=== PATIENT | male | born 1985 | race Caucasian/White ===

== ENCOUNTER 2018-05-13 14:42 | Inpatient (IN) | payer MEDICAID ==
[~2018-05-13] VITALS: Ht 165.1 cm; Wt 104.3 kg
--- NOTE | 2018-05-13 14:42 | NUR ---
PATIENT TO BED 4 BY EMS AT THIS TIME.
--- NOTE | 2018-05-13 14:45 | NUR ---
33Y/M BIB EMS FOR R LOWER LEG PAIN. LEG APPEARS RED, SWOLLEN, HOT TO TOUCH. + SWELLING, +1 PITTING. PT STATES " HE WENT TO [facility] YESTERDAY AND THEY DID NOTHING FOR HIM, HE WOKE UP THIS MORNING AND HIS LEFT LOWER LEG WAS SWOLLEN WITH 10/10 PAIN SCALE". PT IS AAOX4, VSS, BED DOWN, BEDRAIL UP X1, ER MD AWARE AND NOTIFIED OF PT STATUS. HX: TBI X 10 MONTHS RX: DENIES
--- NOTE | 2018-05-13 14:45 | NUR ---
Note undone in EDM - 05/13/18 at 1631 by MEDFL 33Y/M BIB EMS FOR LEFT LOWER LEG PAIN. LEG APPEARS RED, SWOLLEN, HOT TO TOUCH. + SWELLING, +1 PITTING. PT STATES " HE WENT TO [facility] YESTERDAY AND THEY DID NOTHING FOR HIM, HE WOKE UP THIS MORNING AND HIS LEFT LOWER LEG WAS SWOLLEN WITH 10/10 PAIN SCALE". PT IS AAOX4, VSS, BED DOWN, BEDRAIL UP X1, ER MD AWARE AND NOTIFIED OF PT STATUS. HX: TBI X 10 MONTHS RX: DENIES
[2018-05-13 14:47] VITALS: BP 121/73
--- NOTE | 2018-05-13 15:34 | NUR ---
Patient being evaluated by physician at bedside.
[2018-05-13] MEDS ORDERED: NACL 0.9% 500 ML IV SCH (15:40)
[2018-05-13] MEDS ORDERED: VANCOMYCIN 1,000 MG in DEXTROSE 5% 250 ML IV ONE (15:40)
[2018-05-13] MEDS ORDERED: NACL 0.9% 1,000 ML IV ONE (15:40)
[2018-05-13] MEDS ORDERED: PIPERACILLIN/TAZOBACTAM 3.375 GM in DEXT 5% MINI-BAG PLUS 50 ML IV ONE (15:40)
[2018-05-13] MEDS ORDERED: PIPERACILLIN/TAZOBACTAM 3.375 GM VIAL IV ONE ×2 (15:57→21:42)
[2018-05-13] MEDS ORDERED: VANCOMYCIN 1,000 MG VIAL ONE (15:57)
[2018-05-13 16:12] LABS: BASOPHILS # (AUTO) 0.1 K/uL (0.00-0.22); BASOPHILS % (AUTO) 0.7 % (0.0-2.0); EOSINOPHILS # (AUTO) 0.2 K/uL (0-0.4); EOSINOPHILS % (AUTO) 1.5 % (0.0-4.0); HEMATOCRIT 42.2 % (36-52); LYMPHOCYTES # (AUTO) 0.8 K/uL (2.0-11.5); LYMPHOCYTES % (AUTO) 5.4 % (20.5-51.1); MEAN CORPUSCULAR HEMOGLOBIN 29 pg (27-31); MEAN CORPUSCULAR HGB CONC 33 g/dL (33-37); MEAN CORPUSCULAR VOLUME 88.4 fL (80-94); MONOCYTES # (AUTO) 1.2 K/uL (0.8-1.0); MONOCYTES % (AUTO) 7.8 % (1.7-9.3); NEUTROPHILS # (AUTO) 12.5 K/uL (1.8-7.7); NEUTROPHILS % (AUTO) 84.6 % (42.2-75.2); PLATELET COUNT (AUTO) 307 K/uL (140-450); RED BLOOD CELL COUNT(AUTO) 4.78 MIL/uL (4.20-6.10); RED CELL DISTRIBUTION WIDTH 13.9 % (11.6-13.7); WHITE BLOOD COUNT (AUTO) 14.7 K/uL (4.8-10.8)
[2018-05-13 16:24] LABS: ANION GAP 7.6 (8-16); CARBON DIOXIDE 33.3 mmol/L (21-32); POTASSIUM 3.9 mmol/L (3.5-5.1)
[2018-05-13 16:29] LABS: ALBUMIN 3.2 g/dL (3.4-5.0); TOTAL BILIRUBIN 0.6 mg/dL (0.0-1.0)
[2018-05-13 16:59] LABS: APPEARANCE,URINE CLEAR (CLEAR); BILIRUBIN,URINE NEGATIVE (NEGATIVE); BLOOD, URINE NEGATIVE (NEGATIVE); COLOR,URINE YELLOW (YELLOW); UGLUCOSE NEGATIVE (NEGATIVE)
[2018-05-13 16:59] LABS: PROTHROMBIN TIME 9.5 secs (10.8-13.4)
[2018-05-13 17:00] LABS: LEUKOCYTE ESTERASE ,URINE NEGATIVE (NEGATIVE); NITRITE, URINE NEGATIVE (NEGATIVE)
[2018-05-13] MEDS ORDERED: DOCUSATE SODIUM 100 MG GELCAP PO PRN (18:30)
[2018-05-13 18:59] LABS: BARBITURATE, URINE NEG. ng/ml (NEG <=200); BENZODIAZEPINE, URINE NEG. ng/mL (NEG <=200); CANNABINOID, URINE POS. ng/mL (NEG <=50); COCAINE, URINE NEG. ng/mL (NEG <=300); OPIATE, URINE NEG. ng/mL (NEG <=2000); PHENCYCLIDINE SCREEN,URINE NEG. ng/mL (NEG <=25)
[2018-05-13 19:03] LABS: CHOL/HDL RATIO 1.7 (1-4.5); FREE T4 (FREE THYROXINE) 0.98 ng/dL (0.76-1.46); MAGNESIUM 2.1 mg/dL (1.8-2.4); PHOSPHORUS 3.3 mg/dL (2.5-4.9); THYROID STIMULATING HORMONE 0.81 uIU/mL (0.34-3.74)
--- NOTE | 2018-05-13 19:11 | NUR ---
REPORT GIVEN TO YARIEL CAMEJO
--- NOTE | 2018-05-13 19:30 | NUR ---
RECEIVED REPORT FROM AM NURSE. PT RESTING IN BED, RR EVEN AND UNLABORED.
--- NOTE | 2018-05-13 19:49 | NUR ---
TEMP 100.4 AND PAIN 9/10, ENDORSED TO MERCHANDISING EXECUTION ASSOCIATE
--- NOTE | 2018-05-13 19:50 | NUR ---
Patient will be admitted to care of MICHAEL FLOYD. Admited to TELE. Will go to room 125A. Belongings list completed. Report to YARIEL DUQUE.
[2018-05-13 19:52] VITALS: BP 119/80
--- NOTE | 2018-05-13 19:52 | NUR ---
RECEIVED REPORT FROM DAYSMDFT NURSE AT BEDSIDE FOR CONTINUITY OF CARE. IV NOTED LAC 18 SALINE LOCK. NO SOB NO S/S OF DISTRESS ON RA. PT HAS A FEVER MD AT BEDSIDE AND AWARE WILL MEDICATE. PT HAS ABSCESS ON RIGHT CALF REDNESS PICTURE IN CHART. SKIN NON INTACT IN RIGHT FOOT (INBETWEEN 2 AND 3RD TOE). BED LOWERED CALL LIGHT WITHIN REACH. WILL CONTINUE TO MONITOR. Addendum: 05/14/18 at 0009 by Ysabel Jiang RN RECEIVED REPORT FROM FELIZ CORREIA Addendum: 05/14/18 at 0009 by Ysabel Jiang RN RECEIVED REPORT FROM FELIZ BLACK
[2018-05-13] MEDS ORDERED: CLINDAMYCIN 600 MG/4 ML VIAL ONE (20:32)
[2018-05-13] MEDS: CLINDAMYCIN 600 MG in DEXTROSE 5% 50 ML IV SCH (20:53)
[2018-05-13] MEDS: ACETAMINOPHEN 325 MG TAB PO PRN (20:55)
[2018-05-13] MEDS: PIPERACILLIN/TAZOBACTAM 3.375 GM in DEXTROSE 5% 50 ML IV SCH (22:00)
[2018-05-13] MEDS: KETOROLAC 30 MG/ML VIAL IVP PRN (23:32)
--- NOTE | 2018-05-14 00:32 | NUR ---
ADMIN PAIN MED 1 HR AGO PAIN MED EFFECTIVE. WILL CONTINUE TO MONITOR.
[2018-05-14 04:00] VITALS: BP 137/86
[2018-05-14] MEDS ORDERED: PIPERACILLIN/TAZOBACTAM 3.375 GM VIAL IV ONE (04:00)
[2018-05-14] MEDS ORDERED: CLINDAMYCIN 600 MG/4 ML VIAL ONE (04:01)
[2018-05-14] MEDS: CLINDAMYCIN 600 MG in DEXTROSE 5% 50 ML IV SCH (04:04)
[2018-05-14] MEDS: PIPERACILLIN/TAZOBACTAM 3.375 GM in DEXTROSE 5% 50 ML IV SCH (04:50)
[2018-05-14 06:23] LABS: T4 (THYROXINE) 6.7 ug/dL (4.5-12.0)
[2018-05-14] MEDS: ONDANSETRON 4 MG/2 ML VIAL IM/IVP PRN ×2 (06:38→10:05)
--- NOTE | 2018-05-14 06:48 | NUR ---
CHANGED DRESSING SOILED. WILL CONTINUE TO MONITOR. ALSO PT WAS NAUSEA SO MEDICATED.
--- NOTE | 2018-05-14 07:37 | NUR ---
ENDORSED REPORT TO DAYSHIFT NURSE AT BEDSIDE FOR CONTINUITY OF CARE.
--- NOTE | 2018-05-14 07:37 | NUR ---
RECEIVED REPORT FROM DIGITAL SALES MANAGER RN. PT RESTING IN BED. A/O X4. VERBALIZES NEEDS. SKIN DRY AND WARM TO TOUCH. LUNGS CLEAR ON AUSCULTATION. PERIPHERAL LINE LEFT AC 18G . NS RUNNING AT 10 ML/HR. ABDOMEN SOFT ROUND AND NON-TENDER. DENIES DIZZINESS, N/V. CELLULITIS ON RIGHT LOWER LEG. OPEN WOUND ON RIGHT LOWER LEG COVERED WITH DRESSING, MINIMAL DRAINAGE NOTED ST THE SITE. ABLE TO MOVE RIGHT LEG AND FINGERS. PT C/O PAIN ON RIGHT LOWER LEG 10/10. KEPT PT ON COMFORTABLE POSITION. WILL MEDICATE ORDERED. KEPT HOB ELEVATED. BED IN LOW POSITION LOCKED. WILL CONTINUE TO MONITOR.
[2018-05-14] MEDS: ACETAMINOPHEN 325 MG TAB PO PRN (07:48)
[2018-05-14 08:00] VITALS: BP 136/79
[2018-05-14 08:13] LABS: BASOPHILS % (AUTO) 0.2 % (0.0-2.0); EOSINOPHILS # (AUTO) 0.1 K/uL (0-0.4); EOSINOPHILS % (AUTO) 0.9 % (0.0-4.0); HEMATOCRIT 38.6 % (36-52); HEMOGLOBIN 12.9 g/dL (12.0-18.0); LYMPHOCYTES # (AUTO) 0.7 K/uL (2.0-11.5); LYMPHOCYTES % (AUTO) 4.4 % (20.5-51.1); MEAN CORPUSCULAR HEMOGLOBIN 29 pg (27-31); MEAN CORPUSCULAR HGB CONC 33 g/dL (33-37); MEAN CORPUSCULAR VOLUME 86.9 fL (80-94); MONOCYTES # (AUTO) 1.3 K/uL (0.8-1.0); NEUTROPHILS % (AUTO) 86.5 % (42.2-75.2); PLATELET COUNT (AUTO) 286 K/uL (140-450); RED BLOOD CELL COUNT(AUTO) 4.45 MIL/uL (4.20-6.10); RED CELL DISTRIBUTION WIDTH 13.6 % (11.6-13.7); WHITE BLOOD COUNT (AUTO) 16.1 K/uL (4.8-10.8)
[2018-05-14 08:31] LABS: ANION GAP 11.1 (8-16); CARBON DIOXIDE 27.5 mmol/L (21-32); CREATININE 0.7 mg/dL (0.7-1.3); POTASSIUM 3.6 mmol/L (3.5-5.1)
--- NOTE | 2018-05-14 08:43 | NUR ---
PATIENT HAS BEEN SCREENED AND CATEGORIZED HIGH NUTRITION RISK. PATIENT WILL BE SEEN WITHIN 1-2 DAYS OF ADMISSION. 05/14/18-05/15/[address]
[2018-05-14 09:47] LABS: PHOSPHORUS 2.8 mg/dL (2.5-4.9)
[2018-05-14] MEDS: LACTOBACILLUS RHAMNOSUS GG 1 EACH CAP PO SCH (10:01)
[2018-05-14] MEDS: KETOROLAC 30 MG/ML VIAL IVP PRN ×2 (10:19→23:20)
[2018-05-14] MEDS ORDERED: DEXT 5% / NACL 0.45% 1,000 ML IV SCH (11:40)
[2018-05-14] MEDS: NACL 0.9% 1,000 ML IV SCH ×2 (11:45→21:53)
[2018-05-14 12:00] VITALS: BP 117/93
--- NOTE | 2018-05-14 12:00 | NUR ---
PT C/O PAIN ON RT. LOWER LEG. DR. FORREST MADE AWARE. WILL MEDICATE PT ORDERED.
[2018-05-14] MEDS: traMADol 50 MG TAB PO PRN (12:24)
[2018-05-14] MEDS: CLINDAMYCIN PHOS 600MG/D5W PM 50 ML IV SCH ×2 (12:26→20:58)
--- NOTE | 2018-05-14 12:39 | NUR ---
PT ASSISTED AMBULATION ON [address]. STEADY GAIT. BACK TO BED. RESTING IN BED. DENIES NAUSEA, DIZZINESS AT THIS TIME. CLINDAMYCIN RUNNING AT 100 ML/HR.
--- NOTE | 2018-05-14 13:28 | NUR ---
PT'S SISTER CALLED. UPDATED PT CONDITION.
[2018-05-14] MEDS: PIPER/TAZO 3.375GM/D5W PREMIX 50 ML IV SCH ×2 (13:59→20:58)
--- NOTE | 2018-05-14 14:06 | NUR ---
PT APPEARS TO RELAXED LYING IN BED. VERBALIZED DECREASE PAIN. NO ACUTE RESP DISTRESS NOTED.
--- NOTE | 2018-05-14 15:55 | NUR ---
ANSWERED CALL LIGHT. DRESSING SITED SOAKED WITH SEROSANGUINEOUS DRAINAGE. CLEANSED WOUND SITE COVERED WITH DRESSING. RE-APPLIED K-PAD. KEPT PT IN COMFORTABLE POSITION. DENIES PAIN.
[2018-05-14 16:00] VITALS: BP 128/78
--- NOTE | 2018-05-14 16:40 | NUR ---
DOWNGRADED TO MED-SURG.
--- NOTE | 2018-05-14 18:51 | NUR ---
PT ON STABLE CONDITION. NO CHANGE IN LOC.
--- NOTE | 2018-05-14 19:21 | NUR ---
REPORT GIVEN TO AVIATION MAINTENANCE INSTRUCTOR RN FOR CONTINUITY OF CARE. PT ON STABLE CONDITION.
--- NOTE | 2018-05-14 19:22 | NUR ---
RECEIVED PT INSTABLE CONDITION FROM MA NURSE. PT IS AAO X4. MED SURG PT. WITH NO C/O ANY PAIN OR DISCOMFORT AT THIS TIME. HAS IVF INFUSING WELL ON THE LT AC #18. WITH RT LEG CELLULITIS, DRESSING IN PLACED . K PAD ON. PT CAN AMBULATE. PLAN OF CARE DISCUSSED AND VERBALIZED UNDERSTANDING. BED ON LOW POSITION. CALL LIGHT PLACED WITHIN EASY REACH. WILL CONTINUE TO MONITOR.
--- NOTE | 2018-05-14 22:14 | NUR ---
JEISONRN DIRECTIONAL DRILL OPERATOR CALLED AND SAID SHE TRIED CALLING [place] IF PT IS GOING FOR SURGERY ,WANTS TO KNOW THE TIME BUT NO CALL BACK. I TRIED CALLING, LEFT CALL BACK NUMBER.
[2018-05-14 23:15] VITALS: BP 126/74
[2018-05-14] MEDS ORDERED: VANCOMYCIN PER PHARMACY MC PRN (23:15)
--- NOTE | 2018-05-14 23:25 | NUR ---
/ SD CAME AND EXAMINED PT. PT FOR SURGERY ELIZA DODD
[2018-05-15] MEDS ORDERED: VANCOMYCIN 2,000 MG in NACL 0.9% 500 ML IV SCH ×2
--- NOTE | 2018-05-15 00:05 | NUR ---
PT INSTRUCTED ABOUT NPO AFTER MN TONIGHT. VERBALIZED UNDERSTANDING.
--- NOTE | 2018-05-15 00:46 | NUR ---
DR. VAUGHN CAME AND SEEN PT WITH ORDERS. CLINDAMYCIN IV DISCONTINUED AND VANCOMYCIN 2,000 MG IVPB STARTED . WILL MONITOR FOR ANY REACTION.
[2018-05-15] MEDS ORDERED: VANCOMYCIN 1,000 MG VIAL ONE (00:50)
--- NOTE | 2018-05-15 02:30 | NUR ---
MADE ROUNDS. PT ASLEEP. NO S/S OF ANY DISCOMFORT/PAIN NOTED.
--- NOTE | 2018-05-15 04:00 | NUR ---
PT AWAKE. AWARE OT THE SURGERY TO BE DONE TODAY. CONSENT SIGNED.
[2018-05-15] MEDS: PIPER/TAZO 3.375GM/D5W PREMIX 50 ML IV SCH (04:39)
--- NOTE | 2018-05-15 05:30 | NUR ---
NO REACTION NOTED ON THE VANCOMYCIN IV GIVEN AT 0046.
--- NOTE | 2018-05-15 06:30 | NUR ---
REINSTRUCTED PT ABOUT NPO STATUS FOR SURGERY THIS AM.
[2018-05-15 07:06] LABS: BASOPHILS % (AUTO) 0.1 % (0.0-2.0); EOSINOPHILS # (AUTO) 0.3 K/uL (0-0.4); HEMATOCRIT 35.2 % (36-52); HEMOGLOBIN 12.2 g/dL (12.0-18.0); LYMPHOCYTES # (AUTO) 0.9 K/uL (2.0-11.5); LYMPHOCYTES % (AUTO) 10.2 % (20.5-51.1); MEAN CORPUSCULAR HEMOGLOBIN 30 pg (27-31); MEAN CORPUSCULAR HGB CONC 35 g/dL (33-37); MEAN CORPUSCULAR VOLUME 85.4 fL (80-94); MONOCYTES # (AUTO) 0.8 K/uL (0.8-1.0); MONOCYTES % (AUTO) 9.6 % (1.7-9.3); NEUTROPHILS # (AUTO) 6.4 K/uL (1.8-7.7); NEUTROPHILS % (AUTO) 77.1 % (42.2-75.2); PLATELET COUNT (AUTO) 301 K/uL (140-450); RED BLOOD CELL COUNT(AUTO) 4.12 MIL/uL (4.20-6.10); RED CELL DISTRIBUTION WIDTH 13.5 % (11.6-13.7); WHITE BLOOD COUNT (AUTO) 8.3 K/uL (4.8-10.8)
--- NOTE | 2018-05-15 07:15 | NUR ---
RECEIVED PT REPORT FROM THE METAL MACHINE SETTER RN AT BEDSIDE. PT IS SLEEPING, AROUSED BY NAME, OX4. WITH NO C/O ANY PAIN AT THIS TIME. IV CATH NOTED ON LT AC #18, PATENT, INTACT, INFUSING WELL. RT LEG CELLULITIS, DRESSING IN PLACED. K PAD ON. I/D SCHEDULED FOR TODAY. PT CAN AMBULATE. PLAN OF CARE DISCUSSED AND VERBALIZED UNDERSTANDING. BED IN LOWEST POSITION. CALL LIGHT WITHIN REACH. WILL CONTINUE TO MONITOR.
--- NOTE | 2018-05-15 07:15 | NUR ---
ENDORSED PT IN STABLE CONDITION TO AM NURSE FOR CONTINUITY OF CARE.
[2018-05-15 07:37] LABS: ANION GAP 11.4 (8-16); CARBON DIOXIDE 27.3 mmol/L (21-32); CREATININE 0.7 mg/dL (0.7-1.3); POTASSIUM 3.7 mmol/L (3.5-5.1)
[2018-05-15 07:56] LABS: MAGNESIUM 2.1 mg/dL (1.8-2.4); PHOSPHORUS 3.6 mg/dL (2.5-4.9)
[2018-05-15 08:00] VITALS: BP 122/81
[2018-05-15] MEDS ORDERED: VANCOMYCIN 1GM/DEXT 5% PREMIX 200 ML IV SCH (09:00)
--- NOTE | 2018-05-15 09:10 | NUR ---
CHG WIPE DONE ON RIGHT LOWER EXTREMITY.
[2018-05-15] MEDS: LACTOBACILLUS RHAMNOSUS GG 1 EACH CAP PO SCH (09:42)
[2018-05-15] MEDS ORDERED: fentaNYL 0.05 MG/ML VIAL ONE (10:09)
[2018-05-15] MEDS ORDERED: LIDOCAINE 1% 50 ML ONE (10:16)
[2018-05-15] MEDS ORDERED: BUPIVACAINE-MPF 0.25% 30 ML VIAL INJ ONE (10:17)
[2018-05-15] MEDS ORDERED: ONDANSETRON 4 MG/2 ML VIAL ONE (10:18)
[2018-05-15] MEDS ORDERED: DEXAMETHASONE 4 MG/ML VIAL ONE (10:18)
[2018-05-15] MEDS ORDERED: DESFLURANE 240 ML BTL INH ONE (10:18)
[2018-05-15] MEDS ORDERED: PROPOFOL 200 MG/20 ML VIAL IV ONE (10:18)
--- NOTE | 2018-05-15 11:50 | NUR ---
PT IS BACK FROM OR. VITALS TAKEN, WITHIN NORMAL LIMIT. NO S/S OF DISTRESS ON ROOM AIR. DRESSING IS INTACT AND DRY.
[2018-05-15] MEDS: traMADol 50 MG TAB PO PRN (12:07)
[2018-05-15] MEDS: VANCOMYCIN 1GM/DEXT 5% PREMIX 200 ML IV SCH ×2 (13:17→20:26)
[2018-05-15] MEDS: NACL 0.9% 1,000 ML IV SCH ×2 (13:17→17:45)
--- NOTE | 2018-05-15 15:01 | NUR ---
05/15/18 RD INITIAL ASSESSMENT COMPLETED PLEASE REFER TO NUTRITION ASSESSMENT UNDER CARE ACTIVITY FOR ESTIMATED NUTRITIONAL NEEDS. 1. CONTINUE CARDIAC DIET TOLERATED 2. RECOMMEND MARYJANE BID 3. RD TO FOLLOW-UP 5-7 DAYS, LOW RISK HARLAN GONZALES RD
--- NOTE | 2018-05-15 15:30 | NUR ---
PT WANTS TO CLEAN HIMSELF, PROVIDED HYGIENE SUPPLIES, STANDBY ASSISTANCE PROVIDED.
[2018-05-15 16:00] VITALS: BP 119/80
--- NOTE | 2018-05-15 18:25 | NUR ---
ASSESSED PT'S PAIN LEVEL, PT STATED 12/22, ADMINISTER TORADOL PER MD ORDER. PT ATE WELL. NO S/S OF ACUTE DISTRESS ON ROOM AIR.
[2018-05-15] MEDS: KETOROLAC 30 MG/ML VIAL IVP PRN (18:28)
--- NOTE | 2018-05-15 19:23 | NUR ---
ENDORSED PT TO AUTOMOBILE AND PROPERTY UNDERWRITER RN. PT IN STABLE CONDITION.
--- NOTE | 2018-05-15 19:24 | NUR ---
RECEIVED PT IN STABLE CONDITION FROM AM NURSE. MED SURG PT. AWAKE,ALERT AND ORIENTED X4. S/P I AND D OF THE RT LOWER LEG ABSCESS. WITH DRESSING IN PLACED. ELEVATED ON PILLOW. NO C/O ANY DISCOMFORT NOR PAIN AT THIS TIME. HAS IVF INFUSING WELL ON THE LT HAND G#20. CLEAR AND PATENT. BED ON LOW [id number]. CALL LIGHT AND URINAL WITHIN EASY REACH. INSTRUCTED PT TO CALL IF NEED ANY ASSISTANCE OF IF HAVING ANY PAIN. VERBALIZED UNDERSTANDING. WILL CONTINUE TO MONITOR.
[2018-05-15 20:00] VITALS: BP 123/70
--- NOTE | 2018-05-15 21:00 | NUR ---
PT AWAKE. NO C/O ANY PAIN ON THE RT LOWER LEG. RIGHT LEG ELEVATED ON PILLOW .
--- NOTE | 2018-05-15 23:00 | NUR ---
MADE ROUNDS PT IS ASLEEP. NO S/S OF ANY DISCOMFORT NOR PAIN NOTED.
[2018-05-16 00:10] VITALS: BP 112/61
--- NOTE | 2018-05-16 02:00 | NUR ---
PT IS ASLEEP. NO S/S OF ANY DISCOMFORT NOR PAIN NOTED.
[2018-05-16] MEDS: NACL 0.9% 1,000 ML IV SCH ×3 (03:02→23:45)
[2018-05-16] MEDS: VANCOMYCIN 1GM/DEXT 5% PREMIX 200 ML IV SCH (04:59)
[2018-05-16] MEDS: KETOROLAC 30 MG/ML VIAL IVP PRN ×2 (05:04→14:40)
--- NOTE | 2018-05-16 05:04 | NUR ---
AWAKE AND C/O PAIN . MEDICATED ORDERED. WILL CONTINUE TO MONITOR.
[2018-05-16] MEDS ORDERED: IBUP-2213 PO ×2 (06:25→09:00)
[2018-05-16] MEDS ORDERED: CEPH250C16 PO (06:25)
[2018-05-16 07:04] LABS: BASOPHILS % (AUTO) 0.2 % (0.0-2.0); EOSINOPHILS # (AUTO) 0.3 K/uL (0-0.4); EOSINOPHILS % (AUTO) 3.5 % (0.0-4.0); HEMOGLOBIN 12.3 g/dL (12.0-18.0); LYMPHOCYTES # (AUTO) 1.4 K/uL (2.0-11.5); LYMPHOCYTES % (AUTO) 16.5 % (20.5-51.1); MEAN CORPUSCULAR HEMOGLOBIN 29 pg (27-31); MEAN CORPUSCULAR HGB CONC 34 g/dL (33-37); MEAN CORPUSCULAR VOLUME 86.2 fL (80-94); MONOCYTES # (AUTO) 0.7 K/uL (0.8-1.0); MONOCYTES % (AUTO) 8.1 % (1.7-9.3); NEUTROPHILS # (AUTO) 6.3 K/uL (1.8-7.7); NEUTROPHILS % (AUTO) 71.7 % (42.2-75.2); PLATELET COUNT (AUTO) 346 K/uL (140-450); RED BLOOD CELL COUNT(AUTO) 4.18 MIL/uL (4.20-6.10); RED CELL DISTRIBUTION WIDTH 13.4 % (11.6-13.7); WHITE BLOOD COUNT (AUTO) 8.7 K/uL (4.8-10.8)
--- NOTE | 2018-05-16 07:12 | NUR ---
ENDORSED PT IN STABLE CONDITION TO AM NURSE FOR CONTINUITY OF CARE.
--- NOTE | 2018-05-16 07:15 | NUR ---
RECEIVED PT REPORT FROM THE SANDER HAND RN AT BEDSIDE. PT IS SLEEPING, AROUSED BY NAME, OX4. WITH NO C/O ANY PAIN AT THIS TIME. IV CATH NOTED ON LEFT HAND 20 G, PATENT, INTACT, INFUSING WELL. RT LEG CELLULITIS, S/P I/D DAY 2, DRESSING IN PLACED, DRY AND INTACT.PLAN OF CARE DISCUSSED AND VERBALIZED UNDERSTANDING. BED IN LOWEST POSITION. CALL LIGHT WITHIN REACH. WILL CONTINUE TO MONITOR.
[2018-05-16 07:17] LABS: ANION GAP 8.4 (8-16); CARBON DIOXIDE 28.3 mmol/L (21-32); CREATININE 0.8 mg/dL (0.7-1.3); POTASSIUM 3.7 mmol/L (3.5-5.1)
[2018-05-16 08:00] VITALS: BP 120/72
[2018-05-16] MEDS: LACTOBACILLUS RHAMNOSUS GG 1 EACH CAP PO SCH (08:15)
[2018-05-16] MEDS ORDERED: SULF-59 PO (09:00)
--- NOTE | 2018-05-16 10:50 | NUR ---
DRESSING CHANGED FOR RIGHT LEG, CLEANED WITH WOUND CLEANSE, PATTED DRY, WET TO DRY, PACKED WITH 4X4, WRAPPED WITH GAUZE.
[2018-05-16] MEDS: VANCOMYCIN 1,250 MG in DEXTROSE 5% 250 ML IV SCH ×2 (14:07→21:26)
--- NOTE | 2018-05-16 14:40 | NUR ---
PT C/O LEG PAIN, ABLE TO MOVE TOES, CIRCULATION GOOD. PRN PAIN MED GIVEN. PT TOLERATED WELL.
[2018-05-16 16:00] VITALS: BP 108/70
--- NOTE | 2018-05-16 16:46 | NUR ---
[employer] Note: I faxed wound care clinic referral to [facility] (wound care clinic), address [address] [place] [address], phone number , fax number . I called and spoke with Son from [facility] (wound care clinic) to schedule an appt for patient, Son made an appt for patient on 05/20/18 at 1pm. Per Son, MD's order for wound care clinic referral needs to have a handwritten MD's signature, stated they can't see patient at clinic if MD's order with handwritten signature isn't included on order. Addendum: 05/16/18 at 1723 by Oneida Dubon SS I faxed MD's order with MD's handwritten signature () to [facility] (wound care clinic)
--- NOTE | 2018-05-16 19:15 | NUR ---
ENDORSED PT TO PIZZA DRIVER NURSE AT BEDSIDE. PT IN STABLE CONDITION.
--- NOTE | 2018-05-16 19:16 | NUR ---
RECEIVED REPORT FROM DAY SHIFT RN, FOR CONTINUITY OF CARE.PT IS A/OX4, ON ROOM AIR. PT IS ABLE TO MAKE NEEDS KNOWN, ABLE TO FOLLOW COMMANDS. PT BREATHS EQUAL AND UNLABORED. PT IS ABLE TO AMBULATE. PT HAS A 20G IV TO LEFT HAND, ASYMPTOMATIC AND INTACT. DISCUSSED PLAN OF CARE WITH PT, PT VERBALIZED UNDERSTANDING. VITAL SIGNS WITHIN NORMAL LIMITS. PT STABLE, NO SIGNS OF DISTRESS NOTED AT THIS TIME. BED IN LOWEST POSITION, BED ALARM ON. CALL LIGHT WITHIN REACH, WILL CONTINUE TO MONITOR.
--- NOTE | 2018-05-16 20:44 | NUR ---
ADMINISTERED SCHEDULED MEDICATION, PT TOLERATED WELL.
--- NOTE | 2018-05-16 23:35 | NUR ---
ENDORSED PT TO YARIEL RICHTER. PT IN STABLE CONDITION.
--- NOTE | 2018-05-16 23:35 | NUR ---
RECEIVED REPORT FROM YARIEL MANCINI AT PT BEDSIDE. PT IN STABLE CONDITION. PT IS AAO X4. PT IS ON RA. RESPIRATIONS ARE EVEN AND UNLABORED. IV ACCESS TO L HAND 20G. PT STATES IV IS LEAKING, IVF ON HOLD WILL START NEW IV ACCESS. PT HAS OPEN SURGICAL WOUND ON R LEG COVERED WITH DRY AND INTACT DRESSING. PT HAS NO C/O PAIN AT THIS TIME. BED IS LOCKED, LOW POSITION WITH SIDE RAILS UP X2. BOARD UPDATED. CALL LIGHT IS WITHIN REACH. WILL CONTINUE TO MONITOR.
[2018-05-17] VITALS: BP 121/78
--- NOTE | 2018-05-17 00:30 | NUR ---
NEW IV INSERTED IN L FA 20G. OLD IV ACCESS NO LONGER PATENT AND LEAKING, REMOVED WITH CANNULA INTACT. PT TOLERATED WELL. WILL CONTINUE TO MONITOR.
[2018-05-17] MEDS: traMADol 50 MG TAB PO PRN (02:59)
--- NOTE | 2018-05-17 02:59 | NUR ---
PT C/O PAIN IN LEG. TRAMADOL GIVEN. PT TOLERATED WELL. ALL OTHER NEEDS ARE MET AT THIS TIME. WILL CONTINUE TO MONITOR.
--- NOTE | 2018-05-17 03:59 | NUR ---
PT NOW SLEEPING IN BED. NO SIGNS OR SYMPTOMS OF DISTRESS. WILL CONTINUE TO MONITOR.
[2018-05-17] MEDS: VANCOMYCIN 1,250 MG in DEXTROSE 5% 250 ML IV SCH ×2 (05:16→15:43)
--- NOTE | 2018-05-17 05:16 | NUR ---
ADMINISTERED SCHEDULED ANTIBIOTIC. PT IS SLEEPING COMFORTABLY IN BED. NO SIGNS OR SYMPTOMS OF DISTRESS. WILL CONTINUE TO MONITOR.
--- NOTE | 2018-05-17 07:33 | NUR ---
ENDORSED PT TO DAY SHIFT NURSE FOR CONTINUITY OF CARE. PT IN STABLE CONDITION.
--- NOTE | 2018-05-17 07:34 | NUR ---
RECEIVED BEDSIDE REPORT FROM SALVAGE CLERK NURSE. PATIENT IS AWAKE, ALERT AND ORIENTEDX4. NO SIGNS OF DISTRESS ON RA. PATIENT IS AMBULATORY. R LEG S/P I&D. DRESSINGS ARE CLEAN, DRY AND INTACT. MED SURGE PATIENT. L FA 20G INFUSING VANCO AT 165. CLEAN, DRY AND INTACT. NO COMPLAINTS AT THIS TIME. BED IN LOW POSITION. CALL LIGHT WITHIN REACH. WILL CONTINUE TO MONITOR
[2018-05-17 08:00] VITALS: BP 126/77
[2018-05-17] MEDS: LACTOBACILLUS RHAMNOSUS GG 1 EACH CAP PO SCH (08:26)
--- NOTE | 2018-05-17 08:31 | NUR ---
ADMINISTERED MEDICATIONS. PATIENT TOLERATED WELL. WILL CONTINUE TO MONITOR.
--- NOTE | 2018-05-17 10:00 | NUR ---
PATIENT IS WATCHING TV. NO SIGNS OF DISTRESS. WILL CONTINUE TO MONITOR
[2018-05-17 10:19] LABS: BASOPHILS % (AUTO) 0.5 % (0.0-2.0); EOSINOPHILS # (AUTO) 0.4 K/uL (0-0.4); EOSINOPHILS % (AUTO) 4.9 % (0.0-4.0); HEMATOCRIT 40.1 % (36-52); HEMOGLOBIN 13.5 g/dL (12.0-18.0); LYMPHOCYTES # (AUTO) 1.1 K/uL (2.0-11.5); LYMPHOCYTES % (AUTO) 14.8 % (20.5-51.1); MEAN CORPUSCULAR HEMOGLOBIN 29 pg (27-31); MEAN CORPUSCULAR HGB CONC 34 g/dL (33-37); MEAN CORPUSCULAR VOLUME 86.3 fL (80-94); MONOCYTES # (AUTO) 0.7 K/uL (0.8-1.0); MONOCYTES % (AUTO) 8.8 % (1.7-9.3); NEUTROPHILS # (AUTO) 5.3 K/uL (1.8-7.7); PLATELET COUNT (AUTO) 396 K/uL (140-450); RED BLOOD CELL COUNT(AUTO) 4.65 MIL/uL (4.20-6.10); RED CELL DISTRIBUTION WIDTH 13.8 % (11.6-13.7); WHITE BLOOD COUNT (AUTO) 7.5 K/uL (4.8-10.8)
[2018-05-17 11:05] LABS: ANION GAP 10.6 (8-16); CARBON DIOXIDE 30.3 mmol/L (21-32); CREATININE 0.9 mg/dL (0.7-1.3); POTASSIUM 3.9 mmol/L (3.5-5.1)
--- NOTE | 2018-05-17 11:52 | NUR ---
PATIENT IS STILL WATCHING TV.NO COMPLAINTS AT THIS TIME. WILL CONTINUE TO MONITOR
[2018-05-17] MEDS ORDERED: CEPH250C16 PO (12:25)
[2018-05-17] MEDS ORDERED: LACT10CA1 PO (12:25)
--- NOTE | 2018-05-17 13:00 | NUR ---
CALLED PATIENTS SISTER, CHERIE. SHE WILL PICK HIM UP AT 5. PATIENT IS AWARE
--- NOTE | 2018-05-17 15:48 | NUR ---
EDUCATED ON WOUND CARE. ABNORMAL SIGNS AND SYMPTOMS, NOT TO SOAK WOUND, WHEN TO CLEAN WOUND, CLEANSE W NS, PAT DRY AND WET TO DRY DRESSING, COVER W FERMÍN. PATIENT TOLERATED WELL. AND VERBALIZED UNDERSTANDING. PHOTO TAKEN.
[2018-05-17 16:00] VITALS: BP 136/81
[2018-05-17] MEDS ORDERED: PNEUMOCOCCAL VACCINE 23 MCG/0.5 ML VIAL IMVAC SCH (16:00)
--- NOTE | 2018-05-17 16:40 | NUR ---
EDUCATE PATIENT AND SISTER ON DISEASE, ABN S/SX, WOUND CARE, FOLLOW UP W OUT PATIENT WOUND CARE CLINIC, EDUCATED ON WHEN TO GO TO THE ER, EDUCATED ON PNA VACCINE AND ADMINISTERED, EDUCATED ON MEDS. PATIENT VERBALIZED UNDERSTANDING. PATIENT LEFT IN WHEELCHAIR IN STABLE CONDITION. HE WILL BE STAYING AT HIS GOD MOTHERS. GAVE PATIENT WOUND CARE SUPPLIES.
--- NOTE | 2018-05-17 16:40 | NUR ---
WOUND CARE PHOTO TAKEN, IV REMOVED, TIP INTACT. ID BANDS REMOVED
== END 2018-05-17 16:40 | disposition home or self-care (01) | DRG 720 ==
LOC: MED 14:42 → MMU 18:28
PROVIDERS: ADMIT Family Medicine; ATTEND Family Medicine
PROC: 0J9N0ZX Drainage of Right Lower Leg Subcutaneous Tissue and Fascia, Open Approach, Diagnostic (ICD-10-PCS; principal; 2018-05-15 11:00)
PROC: 3E0234Z Introduction of Serum, Toxoid and Vaccine into Muscle, Percutaneous Approach (ICD-10-PCS; 2018-05-17)
DX: A41.9 Sepsis, unspecified organism (principal); E44.0 Moderate protein-calorie malnutrition; E87.1 Hypo-osmolality and hyponatremia; E66.01 Morbid (severe) obesity due to excess calories; F12.99 Cannabis use, unspecified with unspecified cannabis-induced disorder; F15.99 Other stimulant use, unspecified with unspecified stimulant-induced disorder; F12.90 Cannabis use, unspecified, uncomplicated; L02.415 Cutaneous abscess of right lower limb; F19.19 Other psychoactive substance abuse with unspecified psychoactive substance-induced disorder; R73.03 Prediabetes; L03.115 Cellulitis of right lower limb; Z68.38 Body mass index [BMI] 38.0-38.9, adult; Z71.3 Dietary counseling and surveillance; Z87.891 Personal history of nicotine dependence; Z87.820 Personal history of traumatic brain injury; Z23 Encounter for immunization; Z88.1 Allergy status to other antibiotic agents; Z88.5 Allergy status to narcotic agent; Z88.8 Allergy status to other drugs, medicaments and biological substances; Z93.8 Other artificial opening status; Z59.0 Homelessness
CPT/HCPCS: 36415; 71045; 73590; 73620; 80048; 80053; 80202; 80305; 81003; 82140; 82150; 82550; 82553; 83036; 83605; 83615; 83690; 83735; 83874; 83880; 84100; 84436; 84439; 84443; 84484; 85025; 85379; 85610; 85730; 87040; 87070; 87075; 87081; 87086; 87186; 87205; 90471; 90715; 90732; 93005; 93971; 96365; 96367; 99285; C1758; J1100; J1644; J1885; J2001; J2405; J2543; J2704; J3010; J3370; J3490; J7030; J7060; Q0092